=== PATIENT | male | born 1970 | race Caucasian/White ===

== ENCOUNTER 2020-06-28 00:49 | Emergency (ER) | payer BC, OTHER ==
--- NOTE | 2020-06-28 01:09 | EDM.PDOC ---
ED HPI GENERAL MEDICAL PROBLEM - General Chief Complaint: Back Pain or Injury Stated Complaint: left back pain Time Seen by Provider: 06/28/20 01:00 Source of Information: Reports: Patient, Old Records History Limitations: Reports: No Limitations - History of Present Illness INITIAL COMMENTS - FREE TEXT/NARRATIVE: Patient was brought to the emergency room via private automobile by his for evaluation of intermittent bilateral lower thoracic/CVA or pleuritic type sharp pain, left greater than right with some radiation to the left anterior abdominal region. Symptoms started about 3 PM yesterday afternoon. He is a somewhat poor historian. The patient denies any chest pressure, heart flutter, dizziness, orthostasis, orthopnea, diaphoresis, paresthesias, recent decreased exercise tolerance, or any other anginal-type symptoms. No recent history of abdominal pain, heartburn, nausea, diarrhea, melena, gross hematochezia, or any food intolerance, including fatty foods, etc. with normal bowel movement yesterday morning. He denies any gross hematuria, colic, UTI symptoms. The patient also denies any recent fever, cough, wheezing, dyspnea, etc.. The patient was s itting for about 3 hours this afternoon with no history of significant injury, fall, physical activity, etc. He did take 1500 mg of Tylenol at about midnight this evening with no improvement of his symptoms. Onset: Gradual Onset Date: 06/27/20 Onset Time: 15:00 Duration: Getting Worse, Intermittent Location: Reports: Chest, Abdomen, Back, Radiates to (As above). Denies: Head, Face, Neck, Upper Extremity, Left, Upper Extremity, Right Quality: Reports: Sharp Severity: Moderate Improves with: Reports: None Worsens with: Reports: None Context: Reports: Other (As above). Denies: Sick Contact, Trauma Associated Symptoms: Reports: Chest Pain. 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 Right Lower Back Pain Score (Numeric/FACES): 6 Left Lower Back Pain Score (Numeric/FACES): 6 - Related Data Allergies Allergy/AdvReac Type Severity Reaction Status Date / Time Penicillins Allergy Rash Verified 06/28/20 00:52 Home Meds: Home Meds Apixaban [Eliquis] 10 mg PO BID #28 tablet 06/28/20 [Rx] Cholecalciferol (Vitamin D3) [Vitamin D3] 2,000 unit PO BEDTIME 06/28/20 [History] Doxycycline [Vibra-Tabs] 100 mg PO BID #20 tablet 06/28/20 [Rx] Levofloxacin [Levaquin] 500 mg PO BEDTIME #10 tablet 06/28/20 [Rx] Metoprolol Tartrate [Lopressor] 50 mg PO BEDTIME 06/28/20 [History] Simvastatin 40 mg PO BEDTIME 06/28/20 [History] buPROPion HCL [Bupropion Xl] 300 mg PO DAILY 06/28/20 [History] lisinopriL [Lisinopril] 10 mg PO BEDTIME 06/28/20 [History] Past Medical History HEENT History: Reports: Impaired Vision, Otitis Media, Other (See Below). Denies: Allergic Rhinitis, Cataract, Glaucoma, Hard of Hearing, Macular Degeneration, Retinal Detachment Other HEENT History: Patient wears glasses. Cardiovascular History: Reports: High Cholesterol, Hypertension, Other (See Below). Denies: Aneurysm, Arrhythmia, Blood Clots/VTE/DVT, CAD, Heart Murmur, DC, PVD, Syncope Other Cardiovascular History: Mild left ventricular enlargement by Cardiolite scan. Respiratory History: Reports: Sleep Apnea, Other (See Below). Denies: Asthma, Bronchitis, Recurrent, COPD, Intubation, Previous, PE, Pneumonia, Recurrent, Pneumothorax, TB Other Respiratory History: Patient has been compliant with his CPAP. Gastrointestinal History: Reports: Colon Polyp. Denies: Bowel Obstruction, Celiac Disease, Cholelithiasis, Chronic Constipation, Chronic Diarrhea, Diverticulosis, GERD, GI Bleed, Hepatitis, Inflammatory Bowel Disease, Irritable Bowel Syndrome, Jaundice, Pancreatitis, PUD Genitourinary History: Reports: None. Denies: Acute Renal Failure, Chronic Renal Insuffiency, Renal Calculus, Retention, Urinary, STD, Urinary Incontinence, UTI, Recurrent Musculoskeletal History: Reports: Amputation, Other (See Below). Denies: Arthritis, Back Pain, Chronic, Fracture, Gout, Neck Pain, Chronic, Osteoarthritis, RA, SLE Other Musculoskeletal History: Partial amputation of digit #5 of the left hand in 1993. Neurological History: Reports: None. Denies: Cerebral Aneurysms, Concussion, CVA, Headaches, Chronic, Head Trauma, Migraines, MS, Neuropathy, Peripheral, Parkinson's, Seizure, TIA Psychiatric History: Reports: Anxiety, Depression. Denies: Abuse, Victim of, ADD, ADHD, Addiction, Psych Hospitalization(s), PTSD, Suicide Attempt, Suicidal Ideation Endocrine/Metabolic History: Reports: Diabetes, Type II, Obesity/BMI 30+, Other (See Below). Denies: Diabetes, Type I, Diabetes Mellitus, Type 3c, Hypothyroidism, IDDM Other Endocrine/Metabolic History: Prediabetes currently diet controlled. Hematologic History: Reports: None. Denies: Anemia, Blood Transfusion(s) Immunologic History: Reports: None. Denies: AIDS, HIV, SLE Oncologic (Cancer) History: Reports: None. Denies: Basal Cell Carcinoma, Colon, Hodgkin's Lymphoma, Leukemia, Lymphoma, Malignant Melanoma, Non-Hodgkin's L ymphoma, Prostate, Squamous Cell Carcinoma Dermatologic History: Reports: None. Denies: Eczema, Psoriasis - Infectious Disease History Infectious Disease History: Reports: Chicken Pox. Denies: C-Difficile, Measles, Meningitis, Mononucleosis, MRSA, Mumps, Pertussis (Whooping Cough), Rheumatic Fever, Rubella, Scarlet Fever, Shingles, TB, VRE - Past Surgical History Head Surgeries/Procedures: Reports: None HEENT Surgical History: Reports: Myringotomy w Tube(s), Oral Surgery, Other (See Below). Denies: Adenoidectomy, Cataract Surgery, Eye Surgery, Laser Surgery, LASIK, Naso-Sinus Surgery, Tonsillectomy Other HEENT Surgeries/Procedures: Tonsillectomy, adenoidectomy, and bilateral PE tubes at age 10. [place] teeth extraction x2 initially at age 18 and then at about age 25. Cardiovascular Surgical History: Reports: None. Denies: Varicose Respiratory Surgical History: Reports: None. Denies: Thoracentesis GI Surgical History: Reports: Colonoscopy, Polypectomy, Other (See Below). Denies: Appendectomy, Cholecystectomy, EGD, Hernia, Abdominal, Hernia, Inguinal, Hernia Repair/Other Other GI Surgeries/Procedures: Colonoscopy with polypectomy in 2019. Male Surgical History: Reports: Circumcision, Vasectomy, Other (See Below). Denies: TURP-Transurethral Resection of Prostate Other Male Surgeries/Procedures: Vasectomy in about 2011. Circumcision as an . Endocrine Surgical History: Reports: None. Denies: Thyroid Biopsy Neurological Surgical History: Reports: None. Denies: C-Spine, Discectomy, Laminectomy, Lumbar Spine, Sacral Spine, Spinal Fusion, Thoracic Spine, Vertebroplasty Musculoskeletal Surgical History: Reports: Amputation, Other (See Below). Denies: Arthroscopic Knee, Carpal Tunnel, Ganglion Cyst, Joint Replacement, ORIF, Shoulder Surgery Other Musculoskeletal Surgeries/Procedures:: Finger amputation as above. Oncologic Surgical History: Reports: None Dermatological Surgical History: Reports: None - Past Imaging History Past Imaging History: Reports: Stress Testing (Cardiolite stress test on 10/29/2006 with ejection fraction of 57% and findings as above.), Ultrasound (Abdominal ultrasound on 09/10/1998.) Social & Family History - Family History HEENT: Denies: Glaucoma, Macular Degeneration, Retinal Detachment Cardiac: Reports: Aneurysm, Blood Clots/VTE/DVT, Hypertension, Other (See Below). Denies: Afib, Arrhythmia, CAD, Heart Failure, High Cholesterol, DC, PVD/COD, Syncope Other Cardiac Family History: Maternal grandfather with AAA. Father with hypertension. Sister with fatal PE at age 21 with history of DVT. Respiratory: Reports: PE, Other (See Below). Denies: Asthma, COPD, Pneumothorax, Sleep Apnea Other Respiratory Family Hisory: Sister with fatal PE as above. GI: Reports: Cholelithiasis, Other (See Below). Denies: Celiac Disease, Colon Polyps, GERD, GI bleed, Inflammatory Bowel Disease, Irritable Bowel Syndrome, PUD Other GI Family History: Father with cholelithiasis. : Reports: Renal Calculus, Other (See Below) Other Family History: Urolithiasis in mother, maternal grandfather, and paternal uncle. OBGYN: Reports: None. Denies: Endometriosis, Recurrent Spontaneous Musculoskeletal: Reports: None. Denies: Arthritis, Gout, Osteoarthritis, RA, SLE Neurological: Reports: None. Denies: Alzheimers Disease, Cerebral Aneurysms, CVA, Dementia, Migraines, MS, Parkinson's, Seizure, TIA Psychiatric: Reports: None. Denies: Abuse, Victim of, ADD, Anxiety, Depression, Psych Hospitalization(s), PTSD, Suicide Attempt Endocrine/Metabolic: Reports: Obesity/MBI 30+, Other (See Below). Denies: Diabetes, Type I, Diabetes, type II, Diabetes Mellitus, Type 3c, Hypothyroidism, IDDM Other Endocrine/Metabolic Family History: Sister and father with obesity. Hematologic: Reports: None. Denies: Anemia, SLE Immunologic: Reports: None. Denies: AIDS, HIV, SLE Dermatologic: Reports: None. Denies: Angiodema, Psoriasis Oncologic: Reports: Uterine, Other (See Below). Denies: Colon, Hodgkin's Lymphoma, Leukemia, Lung, Metastatic, Non-Hodgkin's Lymphoma, Ovarian, Prostate, Skin Other Oncologic Family History: Mother with uterine cancer. - Tobacco Use Tobacco Use Status *Q: Former Tobacco User Tobacco Use Within Last Twelve Months: No Years of Tobacco use: 23 Packs/Tins Daily: 0.5 Packs/Tins Daily Comment: Chewing tobacco use of 1/2 can/day between ages 18 and 41. Used Tobacco, but Quit: Yes Smoking Cessation Information Provided To Patient: No Second Hand Smoke Exposure: No Second Hand Smoke Education Provided: No - Caffeine Use Caffeine Use: Reports: Coffee (30 ounces per day), Soda (2 sodas per week), Tea (2 glasses/week). Denies: Energy Drinks - Alcohol Use Alcohol Use History: Yes Days Per Week of Alcohol Use: 1 Number of Drinks Per Day: 2 Number of Drinks Per Day Comment: Usually mixed drinks or beer. No previous DWIs, problems with alcohol abuse, etc. Total Drinks Per Week: 2 Alcohol Use in Last Twelve Months: Yes - Recreational Drug Use Recreational Drug Use: No Drug Use in Last 12 Months: No Recreational Drug Type: Denies: Amphetamines (Speed), Heroin, Inhalants (Glues, Solvents, Aerosols), LSD (Acid), Marijuana/Hashish, Methamphetamine, Morphine, Oxycodone - Living Situation & Occupation Living situation: Reports: (1993, 4 children), with Family Occupation: Employed ([employer]) ED ROS GENERAL - Review of Systems Review Of Systems: Comprehensive ROS is negative, except as noted in HPI. ED EXAM, GENERAL - Physical Exam Exam: See Below Exam Limited By: No Limitations General Appearance: Alert, WD/WN, No Apparent Distress, Anxious (Mild) Eye Exam: Bilateral Eye: EOMI, Normal Inspection (No nystagmus. Patient is glasses.), PERRL Ears: Normal External Exam, Normal Canal (Moderate cerumen in EACs bilaterally), Hearing Grossly Normal, Normal TMs Nose: Normal Inspection, Normal Mucosa, No Blood Throat/Mouth: Normal Inspection, Normal Lips, Normal Teeth, Normal Gums, Normal Oropharynx, Normal Voice, No Airway Compromise. No: Dysphagia, Perioral Cyanosis Head: Atraumatic, Normocephalic. No: Facial Swelling, Facial Tenderness, Sinus Tenderness Neck: Normal Inspection, Supple, Non-Tender, Full Range of Motion. No: Carotid Bruit, Lymphadenopathy (L), Lymphadenopathy (R), Thyromegaly Respiratory/Chest: No Respiratory Distress, No Accessory Muscle Use, Chest Non- Tender, Rales (Mild bilateral basilar rales). No: Rhonchi, Wheezing, Pleural Rub, Retractions Cardiovascular: Normal Peripheral Pulses, Regular Rate, Rhythm, No Edema, No Gallop, No JVD, No Murmur, No Rub. No: Gallop/S3, Gallop/S4, Friction Rub Peripheral Pulses: 2+: Radial (L), Radial (R), Dorsalis Pedis (L), Dorsalis Pedis (R) GI/Abdominal: Normal Bowel Sounds, Soft, Non-Tender, No Organomegaly, No Distention, No Abnormal Bruit, No Mass, Pelvis Stable, Other ( obese). No: Guarding (Male) Exam: Deferred Rectal (Males) Exam: Deferred Back Exam: Normal Inspection, Full Range of Motion. No: CVA Tenderness (L), CVA Tenderness (R), Muscle Spasm, Paraspinal Tenderness, Vertebral Tenderness Extremities: Normal Range of Motion, No Pedal Edema, Normal Capillary Refill, Leg Pain (Nonspecific right calf pain by palpation and movement), Other (Partial amputation of the distal phalanx of digit #5 of the left hand.). No: Wallace's Sign Neurological: Alert, Oriented, CN II-XII Intact, Normal Cognition, Normal Gait, Normal Reflexes (Negative Babinski's), No Motor/Sensory Deficits Psychiatric: Anxious (Mild). No: Depressed Mood Skin Exam: Warm, Dry, Intact, Normal Color, No Rash. No: Diaphoretic, Ecchymosis, Mottled, Petechiae, Wound/Incision Lymphatic: No Adenopathy #1 Interpretation EKG Date: 06/28/20 Time: 01:34 Rhythm: NSR Rate (Beats/Min): 67 Shirley: Normal (Left cardiac axis, which is a change from previous neutral cardiac axis) P-Wave: Present QRS: Normal (0.09 seconds) ST-T: Normal QT: Normal IL/PQ Interval: 0.13 seconds are clear no short IL intervals with no delta waves noted Comparison: Change From Previous EKG (As above since Cardiolite stress test on 10/29/2006) EKG Interpretation Comments: 1. No acute ischemic changes 2. Short IL interval Course - Vital Signs Last Recorded V/S: Last Vital Signs Temp 36.3 C 06/28/20 03:17 Pulse 69 06/28/20 03:17 Resp 25 H 06/28/20 03:17 BP 152/69 H 06/28/20 03:17 Pulse Ox 95 06/28/20 03:17 Vital Signs - 24 hr 06/28/20 06/28/20 06/28/20 00:55 01:10 02:35 Temperature [ 37.8 C 36.3 C Temporal] Pulse, 87 67 63 Peripheral [ Right Pulse Oximetry] Respiratory 14 18 14 Rate Blood Pressure 122/68 121/74 [Right Upper Arm] O2 Sat by Pulse 96 93 L 96 Oximetry 06/28/20 03:17 Temperature [ 36.3 C Temporal] Pulse, 69 Peripheral [ Right Pulse Oximetry] Respiratory 25 H Rate Blood Pressure 152/69 H [Right Upper Arm] O2 Sat by Pulse 95 Oximetry - Orders/Labs/Meds Orders: Active Orders 24 hr Category Date Time Status Cardiac Monitoring [RC] . DIRECTED Care 06/28/20 01:10 Active EKG Documentation Completion [RC] ASDIRECTED Care 06/28/20 01:10 Active Oxygen Therapy, ED [RC] PRN Care 06/28/20 01:10 Active Peripheral IV Care [RC] . DIRECTED Care 06/28/20 01:10 Active Pulse Oximetry [RC] CONTINUOUS Care 06/28/20 01:10 Active Up With Assistance [RC] PFP Care 06/28/20 01:10 Active Vital Signs [RC] PFP Care 06/28/20 01:10 Active Nothing per Oral Now Diet [DIET] Diet 06/28/20 Breakfast Active Abdomen Pelvis wo Cont [CT] Stat Exams 06/28/20 01:27 Taken Chest 1V Frontal [CR] Stat Exams 06/28/20 01:10 Taken Chest PE [Ang Chest] [CT] Stat Exams 06/28/20 02:25 Taken CORONAVIRUS COVID-19 ANIBAL [MOLEC] Stat Lab 06/28/20 02:38 Ordered CULTURE BLOOD [BC] Stat Lab 06/28/20 02:00 Received CULTURE BLOOD [BC] Stat Lab 06/28/20 02:08 Received CULTURE STREP A CONFIRMATION [RM] Stat Lab 06/28/20 02:50 Results CULTURE URINE [RM] Routine Lab 06/28/20 01:15 Received STREP SCRN A RAPID W CULT CONF [RM] Stat Lab 06/28/20 02:50 Results Sodium Chloride 0.9% [Saline Flush] Med 06/28/20 01:10 Active 10 ml FLUSH ASDIRECTED PRN Blood Culture x2 Reflex Set [OM.PC] Urgent Oth 06/28/20 01:40 Ordered Isolation [COMM] Routine Oth 06/28/20 02:39 Active Obtain Past Medical Record [OM.PC] Urgent Oth 06/28/20 01:10 Active Peripheral IV Insertion Adult [OM.PC] Stat Oth 06/28/20 01:10 Ordered Resuscitation Status Stat Resus Stat 06/28/20 01:10 Ordered Medication Orders Sodium Chloride (Saline Flush) 10 ml FLUSH ASDIRECTED PRN PRN Reason: Keep Vein Open Last Admin: 06/28/20 03:01 Dose: 10 ml Documented by: Admin: 06/28/20 01:33 Dose: 10 ml Documented by: Admin: 06/28/20 01:31 Dose: 10 ml Documented by: SAIDA Labs: Laboratory Tests 06/28/20 06/28/20 06/28/20 Range/Units 01:15 01:15 01:15 WBC (4.0-10.2) K/uL RBC (4.33-5.41) M/uL Hgb (13.1-16.8) g/dL Hct (39.0-49.0) % MCV (84.0-98.0) fL MCH (28.2-33.3) pg MCHC (31.7-36.0) g/dL RDW (11.2-14.1) % Plt Count (150-350) K/uL Neut % (Auto) (45.0-80.0) % Lymph % (Auto) (10.0-50.0) % [place] % (Auto) (2.0-14.0) % Eos % (Auto) (0.0-5.0) % Baso % (Auto) (0.0-2.0) % Neut # (Auto) (1.40-7.00) K/uL Lymph # (Auto) (0.50-3.50) K/uL [place] # (Auto) (0.00-1.00) K/uL Eos # (Auto) (0.00-0.50) K/uL Baso # (Auto) (0.00-0.20) K/uL PT 9.9 (9.5-12.0) SEC INR 1.0 APTT 26.7 (24.5-32.8) SEC D-Dimer, Quantitative 4240 H (0-400) ng/mL Sodium 138 (136-145) mmol/L Potassium 4.3 (3.5-5.1) mmol/L Chloride 102 (98-107) mmol/L Carbon Dioxide 25.3 (21.0-32.0) mmol/L BUN 19 H (7-18) mg/dL Creatinine 1.02 (0.51-1.17) mg/dL Est Cr Clr Drug Dosing 96.15 mL/min Estimated GFR (MDRD) > 60 mL/min Glucose 145 H (74-106) mg/dL Lactic Acid (0.4-2.0) mmol/L Uric Acid 5.9 (2.6-7.2) mg/dL Calcium 8.6 (8.5-10.1) mg/dL Magnesium 2.0 (1.8-2.4) mg/dL Total Bilirubin 0.4 (0.2-1.0) mg/dL AST 21 (15-37) U/L ALT 35 (12-78) U/L Alkaline Phosphatase 75 (46-116) IU/L Creatine Kinase 234 (26-308) U/L Creatine Kinase Index 0.2 (0.0-2.5) % CK-MB (CK-2) 0.50 (0.00-3.60) ng/mL Troponin I 0.000 (0.000-0.056) ng/mL NT-Pro-B Natriuret Pep 33 (0-125) pg/mL Total Protein 7.7 (6.4-8.2) g/dL Albumin 3.2 L (3.4-5.0) g/dL Amylase 56 (25-115) U/L Lipase 217 (73-393) U/L TSH, Ultra Sensitive 1.361 (0.358-3.740) mIU/mL Specimen Type Urine Color Urine Appearance Urine pH (5.0-9.0) Ur Specific [place] (1.005-1.030) Urine Protein (NEGATIVE) mg/dL Urine Glucose (UA) (NEGATIVE) mg/dL Urine Ketones (NEGATIVE) mg/dL Urine Occult Blood (NEGATIVE) Urine Nitrite (NEGATIVE) Urine Bilirubin (NEGATIVE) Urine Urobilinogen (0.2-1.0) E.U./dL Ur Leukocyte Esterase (NEGATIVE) Urine RBC /HPF Urine WBC /HPF Ur Epithelial Cells /LPF Urine Bacteria (NONE TO FEW) /HPF 06/28/20 06/28/20 06/28/20 Range/Units 01:15 01:20 01:20 WBC 11.5 H (4.0-10.2) K/uL RBC 4.70 (4.33-5.41) M/uL Hgb 13.9 (13.1-16.8) g/dL Hct 42.4 (39.0-49.0) % MCV 90.2 (84.0-98.0) fL MCH 29.6 (28.2-33.3) pg MCHC 32.8 (31.7-36.0) g/dL RDW 12.2 (11.2-14.1) % Plt Count 361 H (150-350) K/uL Neut % (Auto) 63.1 (45.0-80.0) % Lymph % (Auto) 21.1 (10.0-50.0) % [place] % (Auto) 13.6 (2.0-14.0) % Eos % (Auto) 2.0 (0.0-5.0) % Baso % (Auto) 0.2 (0.0-2.0) % Neut # (Auto) 7.26 H (1.40-7.00) K/uL Lymph # (Auto) 2.43 (0.50-3.50) K/uL [place] # (Auto) 1.56 H (0.00-1.00) K/uL Eos # (Auto) 0.23 (0.00-0.50) K/uL Baso # (Auto) 0.02 (0.00-0.20) K/uL PT (9.5-12.0) SEC INR APTT (24.5-32.8) SEC D-Dimer, Quantitative (0-400) ng/mL Sodium (136-145) mmol/L Potassium (3.5-5.1) mmol/L Chloride (98-107) mmol/L Carbon Dioxide (21.0-32.0) mmol/L BUN (7-18) mg/dL Creatinine (0.51-1.17) mg/dL Est Cr Clr Drug Dosing mL/min Estimated GFR (MDRD) mL/min Glucose (74-106) mg/dL Lactic Acid 0.9 (0.4-2.0) mmol/L Uric Acid (2.6-7.2) mg/dL Calcium (8.5-10.1) mg/dL Magnesium (1.8-2.4) mg/dL Total Bilirubin (0.2-1.0) mg/dL AST (15-37) U/L ALT (12-78) U/L Alkaline Phosphatase (46-116) IU/L Creatine Kinase (26-308) U/L Creatine Kinase Index (0.0-2.5) % CK-MB (CK-2) (0.00-3.60) ng/mL Troponin I (0.000-0.056) ng/mL NT-Pro-B Natriuret Pep (0-125) pg/mL Total Protein (6.4-8.2) g/dL Albumin (3.4-5.0) g/dL Amylase (25-115) U/L Lipase (73-393) U/L TSH, Ultra Sensitive (0.358-3.740) mIU/mL Specimen Type Urinvoid Urine Color Dark yellow Urine Appearance Clear Urine pH 6.5 (5.0-9.0) Ur Specific [place] 1.025 (1.005-1.030) Urine Protein Negative (NEGATIVE) mg/dL Urine Glucose (UA) Negative (NEGATIVE) mg/dL Urine Ketones Negative (NEGATIVE) mg/dL Urine Occult Blood Negative (NEGATIVE) Urine Nitrite Negative (NEGATIVE) Urine Bilirubin Negative (NEGATIVE) Urine Urobilinogen 1.0 (0.2-1.0) E.U./dL Ur Leukocyte Esterase Negative (NEGATIVE) Urine RBC 0-5 /HPF Urine WBC 0-5 /HPF Ur Epithelial Cells Few /LPF Urine Bacteria Few (NONE TO FEW) /HPF Blood cultures x2 were collected Urine specimen set up for culture and sensitivity. Meds: Medications Generic Name Dose Route Start Last Admin Trade Name Freq PRN Reason Stop Dose Admin Sodium Chloride 10 ml 06/28/20 01:10 06/28/20 03:01 Saline Flush FLUSH 10 ml ASDIRECTED PRN Administration Keep Vein Open Discontinued Medications Generic Name Dose Route Start Last Admin Trade Name Freq PRN Reason Stop Dose Admin Enoxaparin Sodium 100 mg 06/28/20 02:48 06/28/20 03:00 Lovenox SUBCUT 06/28/20 02:49 100 mg ONETIME ONE Administration Famotidine 40 mg 06/28/20 01:10 06/28/20 01:25 Pepcid IVPUSH 06/28/20 01:11 40 mg ONETIME ONE Administration Hydromorphone HCl 1 mg 06/28/20 01:13 06/28/20 01:25 Dilaudid IVPUSH 06/28/20 01:14 1 mg ONETIME ONE Administration Levofloxacin/Dextrose 500 mg/ 100 mls @ 100 mls/hr 06/28/20 02:45 06/28/20 03:01 Premix IV 06/28/20 03:44 100 mls/hr ONETIME ONE Administration Iopamidol 100 ml 06/28/20 13:00 Isovue-370 (76%) IVPUSH 06/28/20 13:01 ONETIME ONE Iopamidol Confirm 06/28/20 02:34 Isovue-370 (76%) Administered 06/28/20 02:35 Dose 100 ml .ROUTE .STK-MED ONE Ondansetron HCl 4 mg 06/28/20 01:12 06/28/20 01:25 Zofran IVPUSH 06/28/20 01:13 4 mg ONETIME ONE Administration - Radiology Interpretation Free Text/Narrative:: 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 Chest x-ray, portable, shows no evidence of pneumothorax, pulmonary infiltrates, cardiomegaly, or CHF. Official chest x-ray report indicate an ill-defined left lower lobe basilar infiltrate Telephone consultation at 2:34 AM with the radiology department at [facility]. Preliminary verbal report of CT of the abdomen and pelvis without contrast using stone protocol was negative for urolithiasis. Incidental findings of fine bilateral lower lobe pulmonary infiltrates with additional small left pleural effusion. Findings suspicious of possible COVID-19 per the radiologist. Subsequent official written x-ray report does indicate additional incidental findings of a small right-sided inguinal hernia, sigmoid diverticulosis, and a benign right renal cyst. Telephone consultation at 3:21 AM with the radiology department at [facility]. Preliminary verbal report of CTA of the chest using PE protocol was positive for a left upper lobe PE with additional small bilateral lobe PEs. Incidental finding of small bilateral perihilar and mediastinal lymphadenopathy possibly secondary to current infection. Official x-ray report agrees with the above findings. CT Results Date: 06/28/20 CT Results Time: 02:34 Departure - Departure Time of Disposition: 04:05 Disposition: Home, Self-Care 01 Clinical Impression: Hypoalbuminemia, D-dimer, elevated, Colic in adult, Diverticulosis, Renal cyst, Mixed anxiety depressive disorder Diabetes mellitus Qualifiers: Diabetes mellitus type: type 2 Diabetes mellitus correction insulin use: without correction use Diabetes mellitus complication status: without complication Qualified Code(s): E11.9 - Type 2 diabetes mellitus without complications Hypertension Qualifiers: Hypertension type: essential hypertension Qualified Code(s): I10 - Essential (primary) hypertension Hyperlipidemia Qualifiers: Hyperlipidemia type: unspecified Qualified Code(s): E78.5 - Hyperlipidemia, unspecified Chest pain Qualifiers: Chest pain type: other chest pain Qualified Code(s): R07.89 - Other chest pain; R07.8 - Other chest pain Pneumonia Qualifiers: Pneumonia type: due to unspecified organism Laterality: bilateral Lung location: lower lobe of lung Qualified Code(s): J18.9 - Pneumonia, unspecified organism Pulmonary embolism Qualifiers: Pulmonary embolism type: multiple subsegmental (without acute cor pulmonale) Qualified Code(s): I26.94 - Multiple subsegmental pulmonary emboli without acute cor pulmonale - Discharge Information *PRESCRIPTION DRUG MONITORING PROGRAM REVIEWED*: Not Applicable *COPY OF PRESCRIPTION DRUG MONITORING REPORT IN PATIENT NIKOLAY: Not Applicable Prescriptions: Apixaban [Eliquis] 10 mg PO BID #28 tablet Levofloxacin [Levaquin] 500 mg PO BEDTIME #10 tablet Doxycycline [Vibra-Tabs] 100 mg PO BID #20 tablet Instructions: Levofloxacin injection, Ondansetron injection, Hydromorphone injection, Enoxaparin injection, Famotidine injection, Pulmonary Embolism, Community-Acquired Pneumonia, Adult, [id number] Referrals: PCP,None [Primary Care Provider] - Forms: ED Department Discharge Additional Instructions: 1. Followup with your regular provider on 07/01 as directed for reevaluation and recommended repeat CBC, comprehensive metabolic panel, D-dimer, CK, CK-MB, troponin I, CRP, and chest x-ray. Bring these discharge instructions with you to that visit. 2. The hospital will call you later today for recommended venous Doppler studies of your lower extremities to rule out a leg clot. 3. Limited activity for the next few days until otherwise directed by your regular provider with injury, fall, etc. precautions secondary to your anticoagulation therapy. Start your Eliquis at about 3 PM this afternoon with dose to be changed by your regular provider in 1 week. 4. Maintain recommended quarantine until you have been notified of today's COVID-19 test results as discussed with return to previous social distancing, use of masks, etc., thereafter as per current recommended CDC guidelines 5. Congratulations about your continued intentional weight loss and chewing tobacco cessation. 6. Hygiene precautions as discussed with Levaquin to be initiated later this evening and doxycycline this morning. 7. Immediately after this visit verify that your cellular telephone's voicemail has been activated and is empty. Also verify that your home telephone's answering machine is operating properly and has space to receive messages. Note that it is sometimes necessary for us to be able to contact you at a later date to discuss your medical care. 8. Please remember that we are ALWAYS here for you and want to answer any questions you may have. Feel free to call the hospital any time and we call you back TERESA. 9. Tylenol 650 mg by mouth every 4 hours when necessary as directed. 10. STRICT: No OTC ibuprofen, aspirin, OTC Aleve, or other NSAIDs secondary to your current Eliquis therapy 11. NEVER EXCEED THE RECOMMENDED DOSE OF MEDICINES, INCLUDING OTC MEDICINES, ETC. Sepsis Event Note (ED) - Evaluation Sepsis Screening Result: No Definite Risk - Focused Exam Vital Signs: Vital Signs Temp Pulse Resp BP Pulse Ox 06/28/20 03:17 36.3 C 69 25 H 152/69 H 95 06/28/20 02:35 63 14 121/74 96 06/28/20 01:10 36.3 C 67 18 122/68 93 L 06/28/20 00:55 37.8 C 87 14 96 - Problem List & Annotations (1) D-dimer, elevated SNOMED Code(s): 438490051 Code(s): R79.89 - OTHER SPECIFIED ABNORMAL FINDINGS OF BLOOD CHEMISTRY Status: Acute Priority: High Current Visit: Yes Onset Date: 06/28/20 Annotation/Comment:: Note CTA of the chest results as above. IV Lovenox given in the emergency room with initiation of high-dose Eliquis therapy later this afternoon with close follow-up by his regular provider. Injury, etc. precautions were discussed. Venous Doppler studies of the lower extremities to be conducted later today on an outpatient basis with close follow-up by his regular provider. Note sister with early fatal PE at age 21 with further work- up, including possible antiphospholipid screen, etc.. (2) Pulmonary embolism SNOMED Code(s): 50431111 Code(s): I26.99 - OTHER PULMONARY EMBOLISM WITHOUT ACUTE COR PULMONALE Status: Acute Priority: High Current Visit: Yes Onset Date: 06/28/20 Annotation/Comment:: As above. Left upper lobe PE with small bilateral lower lobe PEs also noted. Qualifiers: Pulmonary embolism type: multiple subsegmental (without acute cor pulmonale) Qualified Code(s): I26.94 - Multiple subsegmental pulmonary emboli without acute cor pulmonale (3) Pneumonia SNOMED Code(s): 654075690 Code(s): J18.9 - PNEUMONIA, UNSPECIFIED ORGANISM Status: Acute Priority: High Current Visit: Yes Onset Date: 06/27/20 Annotation/Comment:: CT scan suspicious for COVID-19 as above with COVID-19 rapid screen specimen collected with results available later today. IV Levaquin initiated in the emergency room with continuation of oral Levaquin on an outpatient basis. Additional doxyc ycline therapy will also be initiated as an outpatient secondary to possible COVID-19 as above. Hygiene precautions, isolation precautions, etc. were extensively discussed. Excellent O2 sats on room air with no indication for hospitalization at this time. No significant cough at this time with sputum specimen to be obtained. Influenza booster by his regular provider once his current infection improves. Qualifiers: Pneumonia type: due to unspecified organism Laterality: bilateral (4) Chest pain SNOMED Code(s): 29779961 Code(s): R07.9 - CHEST PAIN, UNSPECIFIED Status: Acute Priority: High Current Visit: Yes Onset Date: 06/27/20 Annotation/Comment:: No true anginal type symptoms with somewhat atypical chest pain with normal cardiac enzymes and EKG. Note mild leukocytosis and fever with likely pleuritic component. Note D- dimer elevation as above. Qualifiers: Chest pain type: other chest pain Qualified Code(s): R07.89 - Other chest pain; R07.8 - Other chest pain (5) Diabetes mellitus SNOMED Code(s): 15122089 Code(s): E11.9 - TYPE 2 DIABETES MELLITUS WITHOUT COMPLICATIONS Status: Chronic Priority: Medium Current Visit: Yes Annotation/Comment:: Mildly elevated random glucose today. Currently diet controlled. The patient has intentionally lost about 30-40 pounds in the last 2 years. Continue to observe closely by his regular providers. Qualifiers: Diabetes mellitus type: type 2 Diabetes mellitus correction insulin use: without superintendent terminal use Diabetes mellitus complication status: without complication Qualified Code(s): E11.9 - Type 2 diabetes mellitus without com plications (6) Hyperlipidemia SNOMED Code(s): 76339745 Code(s): E78.5 - HYPERLIPIDEMIA, UNSPECIFIED Status: Chronic Priority: Medium Current Visit: Yes Annotation/Comment:: Currently under therapy. Note intentional weight loss as above. Qualifiers: Hyperlipidemia type: unspecified Qualified Code(s): E78.5 - Hyperlipidemia, unspecified (7) Hypertension SNOMED Code(s): 85767763 Code(s): I10 - ESSENTIAL (PRIMARY) HYPERTENSION Status: Chronic Priority: Medium Current Visit: Yes Annotation/Comment:: Stable by patient history with current medical therapy. Improved prior to discharge after pain controlled. Patient is already on FRANKI inhibitor, which would also be beneficial for possible COVID-19 infection. Qualifiers: Hypertension type: essential hypertension Qualified Code(s): I10 - Essential (primary) hypertension (8) Hypoalbuminemia SNOMED Code(s): 003541951 Code(s): E88.09 - OTH DISORDERS OF PLASMA-PROTEIN METABOLISM, NEC Status: Acute Priority: Medium Current Visit: Yes Onset Date: 06/28/20 Annotation/Comment:: Observe for now. (9) Colic in adult SNOMED Code(s): 742739170872535 Code(s): R10.84 - GENERALIZED ABDOMINAL PAIN Status: Acute Priority: High Current Visit: Yes Onset Date: 06/27/20 Annotation/Comment:: CT of the abdomen pelvis with stone protocol with results as above. No evidence of ur olithiasis with normal UA, however urine specimen set up for culture and sensitivity. Note immediate relief with IV Dilaudid therapy. (10) Diverticulosis SNOMED Code(s): 240208552 Code(s): K57.90 - DVRTCLOS OF INTEST, PART UNSP, W/O PERF OR ABSCESS W/O BLEED Status: Acute Priority: Medium Current Visit: Yes Onset Date: 06/28/20 Annotation/Comment:: Incidental finding by CT scan today as above. No evidence of diverticulitis. (11) Renal cyst SNOMED Code(s): 292331033 Code(s): N28.1 - CYST OF KIDNEY, ACQUIRED Status: Acute Priority: Medium Current Visit: Yes Onset Date: 06/28/20 Annotation/Comment:: Incidental finding by CT scan. Benign right renal cyst. (12) Mixed anxiety depressive disorder SNOMED Code(s): 283355853 Code(s): F41.8 - OTHER SPECIFIED ANXIETY DISORDERS Status: Chronic Priority: Medium Current Visit: Yes Annotation/Comment:: Stable by history. - Problem List Review Problem List Initiated/Reviewed/Updated: Yes - My Orders Last 24 Hours: My Active Orders 06/28/20 01:10 Cardiac Monitoring [RC] . DIRECTED EKG Documentation Completion [RC] ASDIRECTED Oxygen Therapy, ED [RC] PRN Peripheral IV Care [RC] . DIRECTED Pulse Oximetry [RC] CONTINUOUS Up With Assistance [RC] PFP Vital Signs [RC] PFP Chest 1V Frontal [CR] Stat Sodium Chloride 0.9% [Saline Flush] 10 ml FLUSH ASDIRECTED PRN Obtain Past Medical Record [OM.PC] Urgent Peripheral IV Insertion Adult [OM.PC] Stat Resuscitation Status Stat 06/28/20 01:15 CULTURE URINE [RM] Routine 06/28/20 01:27 Abdomen Pelvis wo Cont [CT] Stat 06/28/20 01:40 Blood Culture x2 Reflex Set [OM.PC] Urgent 06/28/20 02:00 CULTURE BLOOD [BC] Stat 06/28/20 02:08 CULTURE BLOOD [BC] Stat 06/28/20 02:25 Chest PE [Ang Chest] [CT] Stat 06/28/20 02:38 CORONAVIRUS COVID-19 ANIBAL [MOLEC] Stat 06/28/20 02:39 Isolation [COMM] Routine 06/28/20 02:50 CULTURE STREP A CONFIRMATION [RM] Stat STREP SCRN A RAPID W CULT CONF [RM] Stat 06/28/20 Breakfast Nothing per Oral Now Diet [DIET] - Assessment/Plan Last 24 Hours: My Active Orders 06/28/20 01:10 Cardiac Monitoring [RC] . DIRECTED EKG Documentation Completion [RC] ASDIRECTED Oxygen Therapy, ED [RC] PRN Peripheral IV Care [RC] . DIRECTED Pulse Oximetry [RC] CONTINUOUS Up With Assistance [RC] PFP Vital Signs [RC] PFP Chest 1V Frontal [CR] Stat Sodium Chloride 0.9% [Saline Flush] 10 ml FLUSH ASDIRECTED PRN Obtain Past Medical Record [OM.PC] Urgent Peripheral IV Insertion Adult [OM.PC] Stat Resuscitation Status Stat 06/28/20 01:15 CULTURE URINE [RM] Routine 06/28/20 01:27 Abdomen Pelvis wo Cont [CT] Stat 06/28/20 01:40 Blood Culture x2 Reflex Set [OM.PC] Urgent 06/28/20 02:00 CULTURE BLOOD [BC] Stat 06/28/20 02:08 CULTURE BLOOD [BC] Stat 06/28/20 02:25 Chest PE [Ang Chest] [CT] Stat 06/28/20 02:38 CORONAVIRUS COVID-19 ANIBAL [MOLEC] Stat 06/28/20 02:39 Isolation [COMM] Routine 06/28/20 02:50 CULTURE STREP A CONFIRMATION [RM] Stat STREP SCRN A RAPID W CULT CONF [RM] Stat 06/28/20 Breakfast Nothing per Oral Now Diet [DIET] Assessment:: As above. Plan: As above. Extensive precautions were given to the patient, who is in agreement with the treatment plan. See Patient Instructions for further treatment and plan.
[2020-06-28] MEDS ORDERED: Famotidine 20 MG/2 ML SDV IVPUSH ONE (01:10)
[2020-06-28] MEDS ORDERED: Ondansetron 4 MG/2 ML SDV IVPUSH ONE (01:12)
[2020-06-28] MEDS ORDERED: HYDROmorphone 1 MG/ML Syringe IVPUSH ONE (01:13)
[2020-06-28] MEDS: Sodium Chloride 0.9% 10 ML Syringe FLUSH PRN ×3 (01:31→03:01)
[2020-06-28 01:55] LABS: PTT,PARTIAL THROMBOPLSTIN TIME 26.7 SEC (24.5-32.8)
[2020-06-28 02:16] LABS: CHLORIDE,CL 102 mmol/L (98-107); SODIUM,NA 138 mmol/L (136-145)
[2020-06-28] MEDS ORDERED: Iopamidol 755 Mg/ML 100 ML Bottle ONE (02:34)
[2020-06-28] MEDS ORDERED: Levofloxacin/Dextrose 5%-Water 500 MG in Premix Bag 1 BAG IV ONE (02:45)
[2020-06-28] MEDS ORDERED: Enoxaparin 100 MG/1 ML Syringe SUBCUT ONE (02:48)
[2020-06-28] MEDS ORDERED: Iopamidol 755 Mg/ML 100 ML Bottle IVPUSH ONE (13:00)
== END 2020-06-28 04:00 | disposition home or self-care (01) ==
LOC: LL.ED 00:49
DX: U07.1 COVID-19 (principal); J12.89 Other viral pneumonia; I26.94 Multiple subsegmental thrombotic pulmonary emboli without acute cor pulmonale; E78.5 Hyperlipidemia, unspecified; I10 Essential (primary) hypertension; E11.9 Type 2 diabetes mellitus without complications; E88.09 Other disorders of plasma-protein metabolism, not elsewhere classified; R79.1 Abnormal coagulation profile; F41.8 Other specified anxiety disorders; N28.1 Cyst of kidney, acquired; K57.90 Diverticulosis of intestine, part unspecified, without perforation or abscess without bleeding; E78.00 Pure hypercholesterolemia, unspecified; E66.9 Obesity, unspecified; Z88.0 Allergy status to penicillin; Z79.899 Other long term (current) drug therapy; Z89.022 Acquired absence of left finger(s); Z87.891 Personal history of nicotine dependence; Z68.36 Body mass index [BMI] 36.0-36.9, adult
CPT/HCPCS: 36415; 71045; 71275; 74176; 80053; 81001; 82150; 82550; 82553; 83605; 83690; 83735; 83880; 84443; 84484; 84550; 85025; 85379; 85610; 85730; 87040; 87081; 87086; 87430; 87804; 93005; 96365; 96372; 96375; 99285-25; J1170; J1650; J1956; J2405; J3490; Q9967; U0002

== ENCOUNTER 2024-08-01 16:35 | Observation (INO) | payer BC ==
[2024-08-01] MEDS: methylPREDNISolone Sodium Succinate 125 MG/2 ML SDV IVPUSH ONE (16:47)
[2024-08-01] MEDS: diphenhydrAMINE 50 MG/ML SDV IVPUSH ONE ×2 (16:47→23:34)
[2024-08-01] MEDS: Sodium Chloride 0.9% 10 ML Syringe FLUSH PRN (16:48)
[2024-08-01 16:49] LABS: BASOPHILS ABSOLUTE AUTO 0.01 K/uL (0.00-0.20); BASOPHILS PERCENT AUTO 0.1 % (0.0-2.0); EOSINOPHILS ABSOLUTE AUTO 0.02 K/uL (0.00-0.50); EOSINOPHILS PERCENT AUTO 0.2 % (0.0-5.0); HEMATOCRIT 46.9 % (39.0-49.0); HEMOGLOBIN 16.2 g/dL (13.1-16.8); IMMATURE GRAN ABSOLUTE AUTO 0.02 10^3/uL (0.00-0.50); IMMATURE GRAN PERCENT AUTO 0.2 % (0.0-5.0); LYMPHOCYTES ABSOLUTE AUTO 1.34 K/uL (0.50-3.50); LYMPHOCYTES PERCENT AUTO 12.8 % (10.0-50.0); MEAN CORPUSCULAR HEMOGLOBIN 30.3 pg (28.2-33.3); MEAN CORPUSCULAR HGB CONC 34.5 g/dL (31.7-36.0); MEAN CORPUSCULAR VOLUME 87.8 fL (84.0-98.0); MONOCYTES ABSOLUTE AUTO 0.79 K/uL (0.00-1.00); MONOCYTES PERCENT AUTO 7.6 % (2.0-14.0); NEUTROPHILS ABSOLUTE AUTO 8.28 K/uL (1.40-7.00); NEUTROPHILS PERCENT AUTO 79.1 % (45.0-80.0); PLATELET COUNT,PLT 234 K/uL (150-350); RED BLOOD CELL COUNT 5.34 M/uL (4.33-5.41); RED CELL DISTRIBUTION WIDTH 11.9 % (11.2-14.1); WHITE BLOOD CELL COUNT,WBC 10.5 K/uL (4.0-10.2)
[2024-08-01] MEDS: Famotidine 20 MG/2 ML SDV IVPUSH ONE (16:53)
[2024-08-01] MEDS: Ondansetron 4 MG/2 ML SDV IVPUSH ONE (17:07)
[2024-08-01 17:21] LABS: ALANINE AMINOTRANSFERASE,ALT 40 U/L (12-78); ALBUMIN 3.8 g/dL (3.4-5.0); ALKALINE PHOSPHATASE 72 IU/L (46-116); ASPARTATE AMNIOTRANSFERASE,AST 22 U/L (15-37); BILIRUBIN TOTAL 1.4 mg/dL (0.2-1.0); BLOOD UREA NITROGEN,BUN 18 mg/dL (7-18); CALCIUM 8.9 mg/dL (8.5-10.1); CARBON DIOXIDE,CO2 22.8 mmol/L (21.0-32.0); CHLORIDE,CL 96 mmol/L (98-107); GLUCOSE RANDOM 184 mg/dL (70-99); MAGNESIUM 1.5 mg/dL (1.8-2.4); POTASSIUM,K 4.1 mmol/L (3.5-5.1); PROTEIN TOTAL,TP 7.6 g/dL (6.4-8.2); SODIUM,NA 132 mmol/L (136-145)
[2024-08-01 17:24] LABS: ANION GAP 17.3 meq/L (7-15); ESTIMATED GFR 51 mL/min (>=60)
[2024-08-01] MEDS: Sodium Chloride 0.9% 1,000 ML IV ONE (17:39)
[2024-08-01] MEDS: Magnesium Sulfate/Water Premix 2 GM in Premix Bag 1 BAG IV ONE (18:53)
[2024-08-01] MEDS ORDERED: Ondansetron 4 MG/2 ML SDV IVPUSH PRN (18:58)
[2024-08-01 19:39] LABS: APPEARANCE,URINE CLEAR; BILIRUBIN,URINE NEGATIVE (NEGATIVE); COLOR,URINE YELLOW; GLUCOSE,URINE NEGATIVE (NEGATIVE); KETONES,URINE NEGATIVE (NEGATIVE); LEUKOCYTE ESTERASE,URINE NEGATIVE (NEGATIVE); NITRITE,URINE NEGATIVE (NEGATIVE); OCCULT BLOOD,URINE NEGATIVE (NEGATIVE); PH,URINE 6.5 (5.0-9.0); PROTEIN,URINE NEGATIVE (NEGATIVE); UROBILINOGEN,URINE 0.2 E.U./dL (0.2-1.0)
[2024-08-01] MEDS: Sodium Chloride 0.9% 1,000 ML IV STA (20:37)
[2024-08-01] MEDS: Acetaminophen 325 MG Tab PO PRN (20:46)
[2024-08-02] MEDS: diphenhydrAMINE 50 MG/ML SDV IVPUSH ONE ×2 (05:08→11:07)
[2024-08-02 07:20] LABS: HEMATOCRIT 42.7 % (39.0-49.0); HEMOGLOBIN 14.4 g/dL (13.1-16.8); IMMATURE GRAN ABSOLUTE AUTO 0.01 10^3/uL (0.00-0.50); IMMATURE GRAN PERCENT AUTO 0.1 % (0.0-5.0); LYMPHOCYTES ABSOLUTE AUTO 0.91 K/uL (0.50-3.50); LYMPHOCYTES PERCENT AUTO 9.6 % (10.0-50.0); MEAN CORPUSCULAR HGB CONC 33.7 g/dL (31.7-36.0); MONOCYTES ABSOLUTE AUTO 0.43 K/uL (0.00-1.00); MONOCYTES PERCENT AUTO 4.6 % (2.0-14.0); NEUTROPHILS PERCENT AUTO 85.7 % (45.0-80.0); PLATELET COUNT,PLT 195 K/uL (150-350); RED CELL DISTRIBUTION WIDTH 11.9 % (11.2-14.1); WHITE BLOOD CELL COUNT,WBC 9.5 K/uL (4.0-10.2)
[2024-08-02 07:41] LABS: ANION GAP 11.4 meq/L (7-15); CALCIUM 8.4 mg/dL (8.5-10.1); CARBON DIOXIDE,CO2 21.6 mmol/L (21.0-32.0); CREATININE 1.23 mg/dL (0.51-1.17); EST CRCL DRUG DOSING (CG) 76.23 mL/min; MAGNESIUM 2.4 mg/dL (1.8-2.4); POTASSIUM,K 4.6 mmol/L (3.5-5.1)
[2024-08-02] MEDS ORDERED: Lisinopril 10 MG Tab PO ONE (08:00)
[2024-08-02] MEDS: Famotidine 20 MG/2 ML SDV IVPUSH ONE (08:41)
[2024-08-02] MEDS: Lisinopril 10 MG Tab PO ONE (08:42)
[2024-08-02] MEDS: methylPREDNISolone Sodium Succinate 125 MG/2 ML SDV IVPUSH ONE (08:42)
[2024-08-02] MEDS ORDERED: Metoprolol Tartrate 50 MG Tab PO SCH (20:00)
== END 2024-08-02 12:10 | disposition home or self-care (01) ==
LOC: LL.ED 16:35 → UNDOADMOB 18:37 → LL.MS 18:37
PROVIDERS: ADMIT Emergency Medicine; ATTEND Emergency Medicine
DX: L50.9 Urticaria, unspecified (principal); E83.42 Hypomagnesemia; I10 Essential (primary) hypertension; E78.00 Pure hypercholesterolemia, unspecified; I25.10 Atherosclerotic heart disease of native coronary artery without angina pectoris; Z79.899 Other long term (current) drug therapy
CPT/HCPCS: 36415; 80048; 80053; 81003; 83605; 83735; 85025; 85379; 86140; 87428-QW; 96361; 96365; 96366; 96374; 96375; 96376; 99285-25; A9270-GY; G0378; J1200; J2405; J2919; J3475; J3490; J7030